=== PATIENT | female | born 1960 | race Caucasian/White ===

== ENCOUNTER 2017-08-27 09:52 | Outpatient (CLI) | payer BC | END 2017-08-27 09:53 | disposition home or self-care (01) | LOC: BICMAMMO 09:52 | PROVIDERS: ATTEND Internal Medicine | DX: Z12.31 Encounter for screening mammogram for malignant neoplasm of breast (principal); Z13.820 Encounter for screening for osteoporosis; M85.80 Other specified disorders of bone density and structure, unspecified site; R92.1 Mammographic calcification found on diagnostic imaging of breast | CPT/HCPCS: 77063; 77067; 77080 ==

== ENCOUNTER 2019-06-19 07:45 | Outpatient (CLI) | payer BC ==
[2019-06-19] MEDS ORDERED: Iopamidol-370 76% 500 ML 1 ML ONE (09:18)
--- NOTE | 2019-06-19 09:50 | CT ---
CT ABDOMEN AND PELVIS WITH AND WITHOUT IV CONTRAST: Date: 06/19/2019 HISTORY: Hematuria. Had gross hematuria and now has microhematuria. Bilateral flank pain. FINDINGS: The lung bases are clear. No calcified gallstones are seen. The liver, spleen, pancreas, and adrenal glands are normal. No calculi seen in the kidneys, ureters, or the urinary bladder. No hydroureteronephrosis seen on eit her side. Postcontrast CT images demonstrate no evidence of renal mass. There is normal contrast excr etion into the ureters and urinary bladder. The patient is post hysterectomy. No free air, free fluid, or lymphadenopathy seen in the abdomen or pelvis. The small bowel loops are not abnormally dilated. Duodenum diverticulum seen. There are vascu lar calcifications without evidence of aneurysmal dilatation of the abdominal aorta. No osteolytic or osteoblastic lesions are noted. IMPRESSION: No CT evidence of urinary tract calculi/obstruction or renal mass. POS: [facility]
== END 2019-06-19 07:46 | disposition home or self-care (01) ==
LOC: BICCT 07:45
PROVIDERS: ATTEND Internal Medicine
DX: R31.9 Hematuria, unspecified (principal)
CPT/HCPCS: 74178; Q9967

== ENCOUNTER 2019-09-03 10:53 | Outpatient (CLI) | payer BC ==
--- NOTE | 2019-09-03 14:10 | MMO ---
Bilateral MAMMO Bilat Screen [facility]. CLINICAL HISTORY: Patient is 59 years old and is seen for screening. The patient has no family history of breast cancer. The patient has no personal history of cancer. The patient has a history of bilateral Breast reduction in November, - benign. VIEWS: The views performed were: bilateral craniocaudal with tomosynthesis and bilateral mediolateral oblique with tomosynthesis. FILMS COMPARED: The present examination has been compared to prior imaging studies performed at [facility] on 07/14/2014, 07/20/2015, 08/25/2016 and 08/27/2017. This study has been interpreted with the assistance of computer-aided detection. MAMMOGRAM FINDINGS: The breasts are heterogeneously dense, which could obscure a lesion on mammography. Benign calcifications are noted bilaterally. There are no suspicious masses, suspicious calcifications, or new areas of architectural distortion. IMPRESSION: THERE IS NO MAMMOGRAPHIC EVIDENCE OF MALIGNANCY. A ROUTINE FOLLOW-UP MAMMOGRAM IN 1 YEAR IS RECOMMENDED. THE RESULTS OF THIS EXAM WERE SENT TO THE PATIENT. ACR BI-RADS Category 2 - Benign finding MAMMOGRAPHY NOTE: 1. A negative mammogram report should not delay a biopsy if a dominant of clinically suspicious mass is present. 2. Approximately 10% to 15% of breast cancers are not detected by mammography. 3. Adenosis and dense breasts may obscure an underlying neoplasm. Reported by: GIAN OREILLY MD Electonically Signed: [id number]
== END 2019-09-03 10:54 | disposition home or self-care (01) ==
LOC: BICMAMMO 10:53
PROVIDERS: ATTEND Internal Medicine
DX: Z12.31 Encounter for screening mammogram for malignant neoplasm of breast (principal); Z98.82 Breast implant status
CPT/HCPCS: 77063; 77067

== ENCOUNTER 2020-04-26 10:28 | Outpatient (CLI) | payer BC ==
[2020-04-26] MEDS ORDERED: Iopamidol 370 76% 100 ML VIAL ONE (13:21)
== END 2020-04-26 10:29 | disposition home or self-care (01) ==
LOC: CT 10:28
PROVIDERS: ATTEND Physician Assistant
DX: R10.9 Unspecified abdominal pain (principal); K57.30 Diverticulosis of large intestine without perforation or abscess without bleeding
CPT/HCPCS: 74177; Q9967

== ENCOUNTER 2021-03-04 14:22 | Outpatient (CLI) | payer BC | END 2021-03-04 14:23 | disposition home or self-care (01) | LOC: RAD 14:22 | PROVIDERS: ATTEND Internal Medicine | DX: R05.9 Cough, unspecified (principal) | CPT/HCPCS: 71046 ==

== ENCOUNTER 2021-03-30 09:59 | Outpatient (CLI) | payer BC ==
[2021-03-30 11:42] LABS: Hemoglobin 13.7 g/dL (12.0-15.5); Mean Corpuscular HGB CONC 31.5 g/dL (32.0-36.0); Mean Corpuscular Hemoglobin 28.8 pg (27.0-33.0); Mean Corpuscular Volume 91.4 fl (81.6-98.3); Mean Platelet Volume 9.5 fl (7.4-10.4); Platelet Count 346 10x3/uL (150-450); RBC Distribution Width 14.2 % (11.5-14.5); Red Blood Cell (RBC) Count 4.76 10x6/uL (3.90-5.03); White Blood Cell (WBC) Count 11.3 10x3/uL (3.5-10.5)
[2021-03-30 12:08] LABS: Anion Gap 14 mmol/L (10-20); BUN (Urea Nitrogen) 15 mg/dL (9.8-20.1); Calc. Creatinine Clearance 0 mL/min (70-130); Calcium 9.6 mg/dL (7.8-10.44); Carbon Dioxide 29 mmol/L (22-29); Chloride 101 mmol/L (98-107); Glucose 93 mg/dL (70-105); Potassium 4.4 mmol/L (3.5-5.1); Sodium 140 mmol/L (136-145)
[2021-03-30 12:26] LABS: INR-International Normal Ratio 1.2; Prothrombin Time 12.9 sec (9.5-12.1)
== END 2021-03-30 10:00 | disposition home or self-care (01) ==
LOC: LABBT 09:59
PROVIDERS: ATTEND Internal Medicine Cardiovascular Disease
DX: Z01.812 Encounter for preprocedural laboratory examination (principal); I48.0 Paroxysmal atrial fibrillation
CPT/HCPCS: 80048; 85027; 85610; 85730

== ENCOUNTER 2021-04-04 09:11 | Day surgery (SDC) | payer BC ==
[2021-03-30 13:17] VITALS: BMI 33.4
[2021-04-04] MEDS ORDERED: Heparin 10,000 UNITS/ 10 ML VIAL ONE (09:55)
[2021-04-04] MEDS ORDERED: Protamine Sulfate 50 MG/5 ML VIAL ONE (09:55)
[2021-04-04] MEDS ORDERED: Isoproterenol 0.2 MG/1 ML AMP ONE (09:55)
[2021-04-04] MEDS ORDERED: Heparin 25,000 units/D5W 500 ML ONE (09:55)
[2021-04-04] MEDS ORDERED: Scopolamine 1.5 mg/72 hour Patch ONE (10:34)
[2021-04-04] MEDS ORDERED: Famotidine/PF 20 mg/2ml Vial ONE (12:01)
[2021-04-04] MEDS ORDERED: Midazolam HCl 2 mg/2 ml Vial ONE (12:01)
[2021-04-04] MEDS ORDERED: PROPOFOL 200 MG/20 ML VIAL ONE (12:03)
[2021-04-04] MEDS ORDERED: GLYCOPYRROLATE/PF 0.2 MG/ML VIAL ONE (12:03)
[2021-04-04] MEDS ORDERED: PHENYLEPHRINE-NS 100 MCG/ML 10 ML SYRINGE ONE (12:03)
[2021-04-04] MEDS ORDERED: Succinylcholine 200 MG/10 ml SYRINGE FS ONE (12:03)
[2021-04-04] MEDS ORDERED: Ondansetron PF 4 MG/2 ML Vial ONE ×3 (12:03→14:34)
[2021-04-04] MEDS ORDERED: Rocuronium Bromide 10 MG/ML (10ML VIAL) ONE (12:03)
[2021-04-04] MEDS ORDERED: Lidocaine 1% PF 5 ML VIAL ONE (12:03)
[2021-04-04] MEDS ORDERED: Fentanyl 100 MCG/2 ML VIAL ONE (12:05)
[2021-04-04] MEDS ORDERED: Ketorolac Tromethamine 30 MG/ML VIAL IVP PRN (15:32)
[2021-04-04] MEDS ORDERED: Furosemide 40 MG TAB PO PRN (15:32)
[2021-04-04] MEDS ORDERED: Potassium Chloride 20 MEQ TAB PO PRN (15:32)
[2021-04-04] MEDS ORDERED: Fentanyl 250 MCG/5 ML VIAL ONE (15:46)
[2021-04-04] MEDS ORDERED: Sucralfate 1 GM TAB PO SCH (17:00)
== END 2021-04-04 20:08 | disposition home or self-care (01) ==
LOC: SDC 09:11
PROVIDERS: ATTEND Internal Medicine Cardiovascular Disease
DX: I48.0 Paroxysmal atrial fibrillation (principal); I49.3 Ventricular premature depolarization; I34.1 Nonrheumatic mitral (valve) prolapse; I48.92 Unspecified atrial flutter; I87.2 Venous insufficiency (chronic) (peripheral); K21.9 Gastro-esophageal reflux disease without esophagitis; E78.5 Hyperlipidemia, unspecified; G25.81 Restless legs syndrome; Z79.01 Long term (current) use of anticoagulants; Z79.899 Other long term (current) drug therapy
CPT/HCPCS: 85347; 93005; 93613; 93622; 93623; 93656; 93657; 93662; C1732; C1759; C1776; J1644; J2250; J2405; J2704; J2720; J3010; J3490; S0028

== ENCOUNTER 2021-09-12 15:18 | Outpatient (CLI) | payer BC | END 2021-09-12 15:19 | disposition home or self-care (01) | LOC: BICMAMMO 15:18 | PROVIDERS: ATTEND Internal Medicine | DX: Z12.31 Encounter for screening mammogram for malignant neoplasm of breast (principal); Z91.89 Other specified personal risk factors, not elsewhere classified | CPT/HCPCS: 77063; 77067 ==

== ENCOUNTER 2022-06-05 11:50 | Outpatient (CLI) | payer BC | END 2022-06-05 11:51 | disposition home or self-care (01) | LOC: BICRAD 11:50 | PROVIDERS: ATTEND Internal Medicine | DX: R05.9 Cough, unspecified (principal) | CPT/HCPCS: 71046 ==

== ENCOUNTER 2022-06-27 15:54 | Outpatient (CLI) | payer BC | END 2022-06-27 15:55 | disposition home or self-care (01) | LOC: RAD 15:54 | PROVIDERS: ATTEND Internal Medicine | DX: R05.9 Cough, unspecified (principal) | CPT/HCPCS: 71046 ==

== ENCOUNTER 2022-11-13 07:56 | Outpatient (CLI) | payer BC | END 2022-11-13 07:57 | disposition home or self-care (01) | LOC: BICMAMMO 07:56 | PROVIDERS: ATTEND Internal Medicine | DX: Z12.31 Encounter for screening mammogram for malignant neoplasm of breast (principal) | CPT/HCPCS: 77063; 77067 ==

== ENCOUNTER 2023-01-08 16:51 | Outpatient (CLI) | payer BC | END 2023-01-08 16:52 | disposition home or self-care (01) | LOC: SCSRAD 16:51 | PROVIDERS: ATTEND Nurse Practitioner Family | DX: R05.1 Acute cough (principal) | CPT/HCPCS: 71046 ==

== ENCOUNTER 2023-12-10 12:26 | Outpatient (CLI) | payer BC | END 2023-12-10 12:27 | disposition home or self-care (01) | LOC: BICMAMMO 12:26 | PROVIDERS: ATTEND Internal Medicine | DX: Z12.31 Encounter for screening mammogram for malignant neoplasm of breast (principal); Z98.890 Other specified postprocedural states | CPT/HCPCS: 77063; 77067 ==

== ENCOUNTER 2024-03-06 08:11 | Outpatient (CLI) | payer BC | END 2024-03-06 08:12 | disposition home or self-care (01) | LOC: BICRAD 08:11 | PROVIDERS: ATTEND Internal Medicine | DX: M25.572 Pain in left ankle and joints of left foot (principal); M77.52 Other enthesopathy of left foot and ankle ==

== ENCOUNTER 2024-09-29 13:19 | Outpatient (CLI) | payer BC | END 2024-09-29 13:20 | disposition home or self-care (01) | LOC: BICULT 13:19 | PROVIDERS: ATTEND Nurse Practitioner Family | DX: N39.0 Urinary tract infection, site not specified (principal); R10.9 Unspecified abdominal pain | CPT/HCPCS: 76770 ==

== ENCOUNTER 2024-10-17 08:31 | Outpatient (CLI) | payer BC ==
[2024-10-17] MEDS ORDERED: Iopamidol 370 76% 100 ML VIAL ONE (11:22)
== END 2024-10-17 08:32 | disposition home or self-care (01) ==
LOC: CT 08:31
PROVIDERS: ATTEND Physician Assistant Medical
DX: K21.00 Gastro-esophageal reflux disease with esophagitis, without bleeding (principal); K44.9 Diaphragmatic hernia without obstruction or gangrene; R11.0 Nausea; K59.00 Constipation, unspecified; R63.4 Abnormal weight loss; K76.0 Fatty (change of) liver, not elsewhere classified
CPT/HCPCS: 74177; Q9967

== ENCOUNTER 2024-12-25 10:22 | Outpatient (CLI) | payer BC | END 2024-12-25 10:23 | disposition home or self-care (01) | LOC: BICMAMMO 10:22 | PROVIDERS: ATTEND Internal Medicine | DX: Z12.31 Encounter for screening mammogram for malignant neoplasm of breast (principal); Z78.0 Asymptomatic menopausal state; M85.88 Other specified disorders of bone density and structure, other site; Z98.890 Other specified postprocedural states | CPT/HCPCS: 77063; 77067; 77080 ==